=== PATIENT | female | born 1995 | race Caucasian/White ===

== ENCOUNTER 2019-09-23 18:10 | Emergency (ER) | payer SELFPAY ==
[~2019-09-23] VITALS: Ht 172.7 cm; Wt 142.0 kg
[2019-09-23 18:17] VITALS: Ht 172.7 cm; Wt 142.0 kg
[2019-09-23 18:57] VITALS: BP 150/90
== END 2019-09-23 18:57 | disposition home or self-care (01) ==
LOC: ED 18:10
DX: S61.213A Laceration without foreign body of left middle finger without damage to nail, initial encounter (principal); W26.8XXA Contact with other sharp object(s), not elsewhere classified, initial encounter; Y93.89 Activity, other specified; Y92.89 Other specified places as the place of occurrence of the external cause; Y99.8 Other external cause status
CPT/HCPCS: J2001

== ENCOUNTER 2019-09-25 10:53 | Emergency (ER) | payer BC ==
[~2019-09-25] VITALS: Ht 170.2 cm; Wt 136.1 kg
[2019-09-25 11:01] VITALS: Ht 170.2 cm; Wt 136.1 kg
[2019-09-25 12:14] VITALS: BP 151/86
== END 2019-09-25 12:14 | disposition home or self-care (01) ==
LOC: ED 10:53
DX: S61.215D Laceration without foreign body of left ring finger without damage to nail, subsequent encounter (principal); X58.XXXD Exposure to other specified factors, subsequent encounter

== ENCOUNTER 2019-10-02 10:47 | Emergency (ER) | payer BC ==
[~2019-10-02] VITALS: Ht 172.7 cm; Wt 140.6 kg
[2019-10-02 10:51] VITALS: Ht 172.7 cm; Wt 140.6 kg
[2019-10-02 12:08] VITALS: BP 157/78
== END 2019-10-02 12:08 | disposition home or self-care (01) ==
LOC: ED 10:47
DX: S61.213D Laceration without foreign body of left middle finger without damage to nail, subsequent encounter (principal); X58.XXXD Exposure to other specified factors, subsequent encounter